=== PATIENT | male | born 1960 | race Hispanic/Latino ===

== ENCOUNTER 2022-03-10 13:13 | Outpatient (CLI) | payer OTHER ==
[2022-03-10 14:25] LABS: Blood Urea Nitrogen 29 mg/dL (9-20)
--- NOTE | 2022-03-10 17:15 | Cat Scan Report ---
CTA CHEST WITH CONTRAST INDICATION / CLINICAL INFORMATION: AORTIC ANEURYSMAL. TECHNIQUE: Axial CT images were obtained through the chest after injection of 100 cc Omnipaque 350 IV contrast. 3 plane MIP and/or 3D reconstructions were produced. All CT scans at this location are per formed using CT dose reduction for ALARA by means of automated exposure control. COMPARISON: None available. FINDINGS: PULMONARY EMBOLUS: None. THORACIC AORTA: No significant abnormality. HEART: No significant abnormality. CORONARY ARTERY CALCIFICATION: Absent -- None. MEDIASTINUM / DAMIAN: No significant abnormality. PLEURA: No pleural effusion. No pneumothorax. LUNGS: No acute air space or interstitial disease. ADDITIONAL FINDINGS: Large fatty soft tissue mass within the region of the infraspinatus muscle measu res 4.3 x 13.7 cm in AP by transverse diameter with some internal septations and stranding changes UPPER ABDOMEN: No acute findings. SKELETAL STRUCTURES: No significant osseous abnormality. IMPRESSION: 1. No CT evidence for pulmonary embolism. No thoracic aortic aneurysm. 2. CTA neck reported separately 3. 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 Signer Name: Kal Nolasco MD Signed: 03/10/2022 5:07 PM Workstation Name: [id number]
--- NOTE | 2022-03-11 06:48 | Cat Scan Report ---
CT angio neck INDICATION / CLINICAL INFORMATION: AORTIC ANEURYSMAL. TECHNIQUE: CT angiography of neck was performed following administration of 100 cc of Omnipaque 350 intravenous contrast. In addition to axial source images, reconstructed coronal and sagittal MPR seri es as well as thin slab coronal and sagittal MIP series were provided. . Calculation of stenosis marya l be made using direct NASCET criteria. All CT scans at this location are performed using CT dose red uction for ALARA by means of automated exposure control. COMPARISON: CT angiography of the chest 03/10/2022 FINDINGS: Suboptimal imaging protocol secondary to slice thickness of acquisition. Additionally, the thickness of MPR Reconstruction reduces sensitivity for accurate measurement of luminal narrowing. VASCULAR FINDINGS: NECK: AORTA: The aorta demonstrates normal branch morphology. No acute aortic pathology. No severe stenosi s of great vessel origins. GREAT VESSELS: No significant abnormality demonstrated involving great vessels. VERTEBRAL ARTERIES: Vertebral origins are patent. The bilateral V2 segments demonstrate no significan t abnormality. RIGHT CAROTID: The right common carotid artery demonstrates no significant abnormality. At bifurcatio n, predominantly calcified plaque is present within the origin of the right cervical segment ICA and as best measured narrows the lumen to 3 mm. The distal right cervical ICA lumen measures 4.5 mm. LEFT CAROTID: Left common carotid artery demonstrates no significant abnormality. Bifurcation, predom inantly calcified plaque extends into the proximal cervical segment with minimal narrowing of the lum en to 4.4 mm. The distal left cervical ICA lumen measures 4.6 mm. VENOUS STRUCTURES: No significant abnormality of the jugular veins is demonstrated. NONVASCULAR FINDINGS: Soft tissues and musculature of the neck and thyroid as well as visualized portion of the upper chest demonstrate no acute pathology. Moderate multilevel degenerative changes of the cervical spine is de monstrated. IMPRESSION: 1. Less than 50% stenosis is estimated bilaterally involving the cervical segment ICA origins. Predom inantly calcified plaque is noted bilaterally. No evidence of dissection or other acute arterial vasc ular pathology. Signer Name: Josh Hair II, MD Signed: 03/11/2022 6:43 AM Workstation Name: [id number]
== END 2022-03-10 13:14 | disposition home or self-care (01) ==
LOC: CT 13:13
PROVIDERS: ATTEND Psychiatry & Neurology Psychiatry
DX: I71.9 Aortic aneurysm of unspecified site, without rupture (principal); I70.203 Unspecified atherosclerosis of native arteries of extremities, bilateral legs
CPT/HCPCS: 36415; 70498; 71275; 82565; 84520; Q9967